=== PATIENT | female | born 1965 | race Caucasian/White ===

== ENCOUNTER 2021-10-30 13:10 | Inpatient (IN) | payer OTHER ==
[2021-10-30] MEDS ORDERED: Morphine 4 MG/ML VIAL ONE ×4 (13:20→19:25)
[2021-10-30 14:30] LABS: #Eosinphils 0.1 thou/uL (0.0-0.7); #Lymphocytes 1.2 thou/uL (1.20-3.40); #Monocytes 0.4 thou/uL (0.11-0.59); #Neutrophils 5.4 thou/uL (1.40-6.50); %Basophils 0.2 % (0.0-1.0); %Eosinophils 1.7 % (0.0-10.0); %Lymphocytes 17.1 % (21.0-51.0); Mean Corpuscular HGB CONC 33.7 g/dL (32.0-36.0); Mean Corpuscular Hemoglobin 31.9 pg (27.0-31.0); Mean Corpuscular Volume 94.7 fL (78.0-98.0); Mean Platelet Volume 6.6 fL (7.4-10.4); Platelet Count 270 thou/uL (130-400); Red Blood Cell (RBC) Count 4.69 mill/uL (4.20-5.40)
[2021-10-30] MEDS ORDERED: Phytonadione 10 MG/ML AMP PO SCH (14:41)
[2021-10-30] MEDS ORDERED: Ondansetron PF 4 MG/2 ML Vial IVP PRN ×2 (14:49→23:26)
[2021-10-30] MEDS ORDERED: Promethazine HCl 25 MG/ML VIAL IM PRN ×2 (14:49→23:26)
[2021-10-30] MEDS ORDERED: Morphine 2 MG/ML VIAL SLOW IVP PRN (14:49)
[2021-10-30 14:51] LABS: INR-International Normal Ratio 2.6; Prothrombin Time 28.2 sec (12.0-14.7)
[2021-10-30] MEDS ORDERED: traMADol HCl 50 MG TAB PO PRN (14:53)
[2021-10-30] MEDS ORDERED: Acetaminophen 500 MG TAB PO PRN (14:55)
[2021-10-30] MEDS ORDERED: Phytonadione 10 MG/ML AMP ONE (14:56)
[2021-10-30] MEDS ORDERED: Ibuprofen 200 MG TAB PO PRN (14:56)
[2021-10-30 14:58] LABS: ALT (SGPT) 16 U/L (8-55); AST (SGOT) 17 U/L (5-34); Albumin 4.2 g/dL (3.5-5.0); Alkaline Phosphatase 80 U/L (40-110); Anion Gap 13 mmol/L (10-20); BUN (Urea Nitrogen) 16 mg/dL (9.8-20.1); Bilirubin, Total 0.4 mg/dL (0.2-1.2); Calc. Creatinine Clearance 0 mL/min (70-130); Calcium 9.7 mg/dL (7.8-10.44); Carbon Dioxide 25 mmol/L (22-29); Chloride 103 mmol/L (98-107); Globulin 3.2 g/dL (2.4-3.5); Glucose 114 mg/dL (70-105); Protein, Total 7.4 g/dL (6.0-8.3); Sodium 137 mmol/L (136-145)
[2021-10-30] MEDS ORDERED: Phytonadione 5 MG TAB PO SCH ×2 (15:15→20:00)
[2021-10-30] MEDS ORDERED: Ondansetron PF 4 MG/2 ML Vial ONE ×2 (15:15→19:14)
[2021-10-30] MEDS ORDERED: traMADol HCl 50 MG TAB PO SCH (18:00)
[2021-10-30] MEDS ORDERED: Ketamine 50 MG/ML (10ML VIAL) ONE (20:26)
[2021-10-30] MEDS ORDERED: Fentanyl 100 MCG/2 ML VIAL ONE (22:55)
[2021-10-30] MEDS ORDERED: Naloxone HCl 0.4 mg/ml Vial IV PRN (23:26)
[2021-10-30] MEDS ORDERED: diphenhydrAMINE 50 MG/ML VIAL IM PRN (23:26)
[2021-10-30] MEDS ORDERED: HYDROmorphone 10 mg/100 ml CADD IVPB PRN (23:26)
[2021-10-30] MEDS ORDERED: Zolpidem Tartrate 5 MG TAB PO PRN (23:26)
[2021-10-30] MEDS ORDERED: diphenhydrAMINE 50 MG/ML VIAL IVP PRN (23:26)
[2021-10-30] MEDS ORDERED: diphenhydrAMINE 25 MG CAP PO PRN (23:26)
[2021-10-30] MEDS ORDERED: Communication Order-Pharmacy FS SCH (23:30)
[2021-10-30] MEDS ORDERED: Cyclobenzaprine 10 MG TAB PO SCH (23:45)
[2021-10-30] MEDS ORDERED: Sodium Chloride 0.9% 1,000 ML IV SCH (23:59)
[2021-10-31 00:20] LABS: SARS-CoV-2 NAA Rapid Test Not Detected (NotDetected)
[2021-10-31] MEDS: Famotidine 20 MG TAB PO SCH ×3 (00:37→19:53)
[2021-10-31] MEDS: Senokot S 8.6-50 MG TAB PO SCH ×3 (00:38→19:53)
[2021-10-31] MEDS: Famotidine/PF 20 mg/2ml Vial SLOW IVP SCH ×3 (00:38→22:43)
[2021-10-31 01:55] VITALS: BMI 29.4
[2021-10-31 05:53] LABS: #Lymphocytes 1.3 thou/uL (1.20-3.40); #Monocytes 0.6 thou/uL (0.11-0.59); #Neutrophils 4.9 thou/uL (1.40-6.50); %Basophils 0.4 % (0.0-1.0); %Eosinophils 0.7 % (0.0-10.0); %Lymphocytes 18.8 % (21.0-51.0); %Monocytes 8.3 % (0.0-10.0); %Neutrophils 71.8 % (42.0-75.0); Hemoglobin 12.9 g/dL (12.0-16.0); Mean Corpuscular HGB CONC 33.5 g/dL (32.0-36.0); Mean Corpuscular Volume 95.3 fL (78.0-98.0); Mean Platelet Volume 6.6 fL (7.4-10.4); Platelet Count 224 thou/uL (130-400); Red Blood Cell (RBC) Count 4.04 mill/uL (4.20-5.40); White Blood Cell (WBC) Count 6.9 thou/uL (4.8-10.8)
[2021-10-31 05:58] LABS: Prothrombin Time 22.8 sec (12.0-14.7)
[2021-10-31 06:11] LABS: Anion Gap 12 mmol/L (10-20); BUN (Urea Nitrogen) 14 mg/dL (9.8-20.1); Calc. Creatinine Clearance 102 mL/min (70-130); Calcium 8.8 mg/dL (7.8-10.44); Carbon Dioxide 23 mmol/L (22-29); Chloride 106 mmol/L (98-107); Glucose 113 mg/dL (70-105); Magnesium 1.8 mg/dL (1.6-2.6); Phosphorus 3.5 mg/dL (2.3-4.7); Sodium 137 mmol/L (136-145)
[2021-10-31] MEDS ORDERED: Magnesium 2 GM/50 ML 2 GM in Premix Bag 1 BAG IVPB SCH (07:15)
[2021-10-31] MEDS ORDERED: Levothyroxine 150 MCG TAB PO SCH (08:15)
[2021-10-31] MEDS: Levothyroxine 150 MCG TAB PO SCH (09:06)
[2021-10-31] MEDS: Bupropion 150 MG XL TAB PO SCH (09:06)
[2021-10-31] MEDS: Citalopram 20 MG TAB PO SCH (09:06)
[2021-10-31] MEDS: Hydroxychloroquine Sulfate 200 MG TAB PO SCH ×2 (09:07→19:54)
[2021-10-31] MEDS: Polyethylene Glycol 3350 17 GM Packet PO SCH (09:22)
[2021-10-31 09:57] LABS: INR-International Normal Ratio 1.9; Prothrombin Time 22.4 sec (12.0-14.7)
[2021-10-31] MEDS: Acetaminophen 500 MG TAB PO SCH ×3 (10:43→23:12)
[2021-10-31] MEDS ORDERED: ceFAZolin 2 GM/Dextrose 50 ML 2 GM in Premix Bag 1 BAG IVPB SCH (11:45)
[2021-10-31] MEDS ORDERED: Sodium Chloride 0.9% 1,000 ML IV SCH (12:00)
[2021-10-31] MEDS ORDERED: Ketorolac Tromethamine 30 MG/ML VIAL ONE (12:02)
[2021-10-31] MEDS ORDERED: Ketorolac Tromethamine 30 MG/ML VIAL IVP SCH (12:30)
[2021-10-31] MEDS: Sodium Chloride 0.9% 1,000 ML IV SCH ×2 (12:33→22:41)
[2021-10-31] MEDS: Cyclobenzaprine 10 MG TAB PO PRN (12:38)
[2021-10-31] MEDS: HYDROmorphone 10 mg/100 ml CADD IVPB PRN (14:42)
[2021-10-31 17:41] LABS: INR-International Normal Ratio 2.1; Prothrombin Time 24.2 sec (12.0-14.7)
[2021-10-31] MEDS ORDERED: Phytonadione 5 MG TAB PO SCH (17:50)
[2021-10-31] MEDS: Ketorolac Tromethamine 30 MG/ML VIAL IVP SCH ×2 (17:55→23:13)
[2021-10-31 18:07] LABS: Bacteria/HPF None Seen HPF (None Seen); Bilirubin Negative (Negative); Blood, Urine Trace (Negative); Clarity Clear (Clear); Glucose, Urine (Dipstick) Normal (Negative); Ketone, Urine 40 mg/dL (Negative); Leukocyte 250 Leu/uL (Negative); Nitrite Negative (Negative); Protein, Urine (Dipstick) 50 mg/dL (Neg-Trace); Specific Gravity, Urine 1.021 (1.002-1.036); Squamous Epithelial 0-3 HPF (0-3); Urobilinogen Normal mg/dL (Less than 2); WBC/HPF 21-50 HPF (0-3)
[2021-10-31 18:11] LABS: Urine Culture Reflex Yes Yes
[2021-10-31] MEDS ORDERED: Phytonadione 10 MG/ML AMP SLOW IVP SCH ×2 (18:38→22:00)
[2021-10-31] MEDS: Pregabalin 25 MG CAP PO SCH (19:53)
[2021-10-31] MEDS: clonazePAM 1 MG TAB PO SCH ×2 (19:53→22:43)
[2021-10-31] MEDS ORDERED: Pregabalin 25 MG CAP PO SCH (21:00)
[2021-10-31] MEDS ORDERED: Hydrocortisone Sod Succ/PF 100 mg/2 ml Vial IVP SCH (21:30)
[2021-10-31 23:10] LABS: INR-International Normal Ratio 1.7
[2021-11-01] MEDS ORDERED: Phytonadione 10 MG/ML AMP SLOW IVP SCH (01:00)
[2021-11-01 03:24] LABS: #Eosinphils 0.1 thou/uL (0.0-0.7); #Lymphocytes 0.4 thou/uL (1.20-3.40); #Monocytes 0.2 thou/uL (0.11-0.59); #Neutrophils 5.8 thou/uL (1.40-6.50); %Basophils 0.5 % (0.0-1.0); %Eosinophils 0.8 % (0.0-10.0); %Lymphocytes 6.8 % (21.0-51.0); %Monocytes 3.1 % (0.0-10.0); %Neutrophils 88.9 % (42.0-75.0); Hemoglobin 11.9 g/dL (12.0-16.0); Mean Corpuscular HGB CONC 33.4 g/dL (32.0-36.0); Mean Corpuscular Hemoglobin 32.6 pg (27.0-31.0); Mean Corpuscular Volume 97.7 fL (78.0-98.0); Mean Platelet Volume 6.6 fL (7.4-10.4); Platelet Count 166 thou/uL (130-400); Red Blood Cell (RBC) Count 3.64 mill/uL (4.20-5.40); White Blood Cell (WBC) Count 6.6 thou/uL (4.8-10.8)
[2021-11-01 03:33] LABS: INR-International Normal Ratio 1.5; Prothrombin Time 18.1 sec (12.0-14.7)
[2021-11-01 03:45] LABS: Anion Gap 8 mmol/L (10-20); BUN (Urea Nitrogen) 12 mg/dL (9.8-20.1); Calc. Creatinine Clearance 117 mL/min (70-130); Calcium 8.4 mg/dL (7.8-10.44); Carbon Dioxide 26 mmol/L (22-29); Chloride 107 mmol/L (98-107); Glucose 106 mg/dL (70-105); Magnesium 2.2 mg/dL (1.6-2.6); Phosphorus 2.8 mg/dL (2.3-4.7); Potassium 4.2 mmol/L (3.5-5.1); Sodium 137 mmol/L (136-145)
[2021-11-01] MEDS: Acetaminophen 500 MG TAB PO SCH ×3 (04:02→17:03)
[2021-11-01] MEDS: Sodium Chloride 0.9% 1,000 ML IV SCH ×2 (04:37→15:43)
[2021-11-01] MEDS: Cyclobenzaprine 10 MG TAB PO PRN ×2 (04:37→17:03)
[2021-11-01] MEDS: Hydrocortisone Sod Succ/PF 100 mg/2 ml Vial IVP SCH ×3 (04:37→21:07)
[2021-11-01] MEDS: Ketorolac Tromethamine 30 MG/ML VIAL IVP SCH ×3 (04:38→17:04)
[2021-11-01] MEDS: Famotidine/PF 20 mg/2ml Vial SLOW IVP SCH (08:26)
[2021-11-01] MEDS ORDERED: ZOLMITRIPTAN 2.5 MG PO PRN (09:34)
[2021-11-01] MEDS: SUMAtriptan Succinate 50 MG TAB PO PRN (10:42)
[2021-11-01] MEDS ORDERED: ceFAZolin 2 GM/Dextrose 50 ML IVPB ONE (12:43)
[2021-11-01] MEDS ORDERED: Midazolam HCl 2 mg/2 ml Vial ONE (12:50)
[2021-11-01] MEDS ORDERED: Fentanyl 100 MCG/2 ML VIAL ONE ×3 (12:50→16:05)
[2021-11-01] MEDS ORDERED: Dexmedetomidine 200 MCG/2 ML VIAL ONE (13:14)
[2021-11-01] MEDS ORDERED: Promethazine HCl 25 MG/ML VIAL IVPB PRN (15:14)
[2021-11-01] MEDS ORDERED: HYDROmorphone 2 MG/ML VIAL SLOW IVP PRN (15:14)
[2021-11-01] MEDS ORDERED: Ondansetron HCl/PF 4 MG/2 ML Vial IVP PRN (15:14)
[2021-11-01] MEDS ORDERED: Morphine Sulfate 2 MG/ML SYRINGE SLOW IVP PRN (15:14)
[2021-11-01] MEDS ORDERED: Promethazine HCl 25 MG/ML VIAL IM PRN (15:14)
[2021-11-01] MEDS ORDERED: PACU-Morphine 4MG/ML VIAL SLOW IVP PRN (15:14)
[2021-11-01] MEDS: Hydroxychloroquine Sulfate 200 MG TAB PO SCH ×2 (15:41→20:38)
[2021-11-01] MEDS: Pregabalin 25 MG CAP PO SCH ×2 (15:42→20:38)
[2021-11-01] MEDS: Senokot S 8.6-50 MG TAB PO SCH ×2 (15:42→20:39)
[2021-11-01] MEDS ORDERED: HYDROmorphone 0.5 MG/0.5 ML SYRINGE ONE (16:13)
[2021-11-01] MEDS ORDERED: Morphine 4 MG/ML VIAL ONE (16:19)
[2021-11-01] MEDS: HYDROmorphone 10 mg/100 ml CADD IVPB PRN (16:37)
[2021-11-01] MEDS: Citalopram 20 MG TAB PO SCH (17:02)
[2021-11-01] MEDS: Bupropion 150 MG XL TAB PO SCH (17:03)
[2021-11-01] MEDS: Polyethylene Glycol 3350 17 GM Packet PO SCH (17:03)
[2021-11-01] MEDS: Famotidine 20 MG TAB PO SCH (19:28)
[2021-11-01] MEDS: traZODone HCl 50 MG TAB PO SCH (20:39)
[2021-11-01] MEDS: Zolpidem Tartrate 5 MG TAB PO SCH (20:39)
[2021-11-01] MEDS ORDERED: ESZOPICLONE 2 MG PO SCH (21:00)
[2021-11-01] MEDS: ceFAZolin 2 GM/Dextrose 50 ML 2 GM in Premix Bag 1 BAG IVPB SCH (21:07)
[2021-11-01] MEDS: clonazePAM 1 MG TAB PO SCH (21:20)
[2021-11-02] MEDS: Acetaminophen 500 MG TAB PO SCH ×5 (00:04→20:56)
[2021-11-02] MEDS: Ketorolac Tromethamine 30 MG/ML VIAL IVP SCH ×2 (00:04→04:54)
[2021-11-02] MEDS: Sodium Chloride 0.9% 1,000 ML IV SCH (00:04)
[2021-11-02] MEDS: ceFAZolin 2 GM/Dextrose 50 ML 2 GM in Premix Bag 1 BAG IVPB SCH ×2 (04:53→14:10)
[2021-11-02] MEDS: Hydrocortisone Sod Succ/PF 100 mg/2 ml Vial IVP SCH ×3 (04:53→20:55)
[2021-11-02] MEDS: Levothyroxine 150 MCG TAB PO SCH (04:54)
[2021-11-02 05:16] LABS: #Lymphocytes 0.7 thou/uL (1.20-3.40); #Monocytes 0.5 thou/uL (0.11-0.59); #Neutrophils 6.8 thou/uL (1.40-6.50); %Eosinophils 0.3 % (0.0-10.0); %Lymphocytes 8.2 % (21.0-51.0); %Monocytes 6.4 % (0.0-10.0); %Neutrophils 85.1 % (42.0-75.0); Hemoglobin 10.3 g/dL (12.0-16.0); Mean Corpuscular HGB CONC 32.3 g/dL (32.0-36.0); Mean Corpuscular Hemoglobin 31.5 pg (27.0-31.0); Mean Corpuscular Volume 97.6 fL (78.0-98.0); Mean Platelet Volume 6.7 fL (7.4-10.4); Platelet Count 177 thou/uL (130-400); RBC Distribution Width 11.6 % (11.5-14.5); Red Blood Cell (RBC) Count 3.27 mill/uL (4.20-5.40)
[2021-11-02] MEDS: SUMAtriptan Succinate 50 MG TAB PO PRN (07:37)
[2021-11-02] MEDS: Cyclobenzaprine 10 MG TAB PO PRN ×2 (08:53→18:17)
[2021-11-02] MEDS: Polyethylene Glycol 3350 17 GM Packet PO SCH (08:53)
[2021-11-02] MEDS: Bupropion 150 MG XL TAB PO SCH (08:54)
[2021-11-02] MEDS: Hydroxychloroquine Sulfate 200 MG TAB PO SCH ×2 (08:54→20:55)
[2021-11-02] MEDS: Senokot S 8.6-50 MG TAB PO SCH ×2 (08:54→20:56)
[2021-11-02] MEDS: Citalopram 20 MG TAB PO SCH (08:54)
[2021-11-02] MEDS: Pregabalin 25 MG CAP PO SCH ×2 (08:55→20:56)
[2021-11-02 09:07] LABS: INR-International Normal Ratio 1.3; Prothrombin Time 16.6 sec (12.0-14.7)
[2021-11-02] MEDS: traMADol HCl 50 MG TAB PO PRN ×2 (10:19→21:11)
[2021-11-02] MEDS: traMADol HCl 50 MG TAB PO SCH ×2 (11:28→18:16)
[2021-11-02] MEDS: Ibuprofen 200 MG TAB PO SCH ×3 (14:13→20:55)
[2021-11-02] MEDS ORDERED: Warfarin Sodium 2 MG TAB PO SCH (17:00)
[2021-11-02] MEDS: clonazePAM 1 MG TAB PO SCH (20:54)
[2021-11-02] MEDS: Zolpidem Tartrate 5 MG TAB PO SCH (20:56)
[2021-11-02] MEDS: traZODone HCl 50 MG TAB PO SCH (20:56)
[2021-11-03] MEDS: Ibuprofen 200 MG TAB PO SCH ×4 (02:22→13:09)
[2021-11-03] MEDS: traMADol HCl 50 MG TAB PO SCH ×3 (02:22→11:34)
[2021-11-03] MEDS: Cyclobenzaprine 10 MG TAB PO PRN ×2 (03:39→09:16)
[2021-11-03] MEDS: Acetaminophen 500 MG TAB PO SCH ×2 (03:40→09:07)
[2021-11-03 05:42] LABS: INR-International Normal Ratio 1.3; Prothrombin Time 16.1 sec (12.0-14.7)
[2021-11-03] MEDS: Levothyroxine 150 MCG TAB PO SCH (06:07)
[2021-11-03] MEDS: Bupropion 150 MG XL TAB PO SCH (08:57)
[2021-11-03] MEDS: Citalopram 20 MG TAB PO SCH (08:59)
[2021-11-03] MEDS: Hydrocortisone Sod Succ/PF 100 mg/2 ml Vial IVP SCH (09:00)
[2021-11-03] MEDS ORDERED: Enoxaparin Sodium 40 MG/0.4 ML SYRINGE SC SCH (09:00)
[2021-11-03] MEDS: Hydroxychloroquine Sulfate 200 MG TAB PO SCH (09:03)
[2021-11-03] MEDS: Pregabalin 25 MG CAP PO SCH (09:05)
[2021-11-03] MEDS: Polyethylene Glycol 3350 17 GM Packet PO SCH (09:05)
[2021-11-03] MEDS: Senokot S 8.6-50 MG TAB PO SCH (09:06)
[2021-11-03 13:33] VITALS: BP 117/79; TEMP 98.2
[2021-11-03] MEDS ORDERED: Warfarin Sodium 7.5 MG TAB PO SCH (20:00)
== END 2021-11-03 13:09 | disposition home or self-care (01) | DRG 493 ==
LOC: ERS 13:10 → SURG B 14:49
PROVIDERS: ADMIT Surgery; ATTEND Surgery
PROC: 30233K1 Transfusion of Nonautologous Frozen Plasma into Peripheral Vein, Percutaneous Approach (ICD-10-PCS; 2021-10-31)
PROC: 0QSH04Z Reposition Left Tibia with Internal Fixation Device, Open Approach (ICD-10-PCS; principal; 2021-11-01)
DX: S82.142A Displaced bicondylar fracture of left tibia, initial encounter for closed fracture (principal); Q87.410 Marfan syndrome with aortic dilation; Z66 Do not resuscitate; Z20.822 Contact with and (suspected) exposure to COVID-19; M32.9 Systemic lupus erythematosus, unspecified; I71.4 Abdominal aortic aneurysm, without rupture; F32.A Depression, unspecified; F41.9 Anxiety disorder, unspecified; E06.3 Autoimmune thyroiditis; Z60.2 Problems related to living alone; W18.39XA Other fall on same level, initial encounter; Z86.711 Personal history of pulmonary embolism; Z90.49 Acquired absence of other specified parts of digestive tract; Z98.1 Arthrodesis status; Z79.01 Long term (current) use of anticoagulants; Z79.899 Other long term (current) drug therapy; Z79.890 Hormone replacement therapy; Z98.890 Other specified postprocedural states
CPT/HCPCS: 36415; 36430; 70450; 72125; 76000; 80048; 80053; 81001; 82533; 83735; 84100; 85025; 85610; 85730; 86850; 86900; 86901; 87086; 93005; 96374; 96375; 96376; C1713; G0390; J0690; J1170; J1720; J1885; J2250; J2270; J2405; J3010; J3430; J3475; J7050; P9059; S0028; U0002